=== PATIENT | female | born 2005 | race Native Hawaiian/Other Pacific Islander ===

== ENCOUNTER 2023-03-29 17:51 | Emergency (ER) | payer OTHER ==
[~2023-03-29] VITALS: Ht 162.6 cm; Wt 54.0 kg
[2023-03-29 17:55] VITALS: BP 106/54; TEMP 98.4
== END 2023-03-29 19:56 | disposition home or self-care (01) ==
LOC: ED 17:51
DX: J00 Acute nasopharyngitis [common cold] (principal); N39.0 Urinary tract infection, site not specified
CPT/HCPCS: 81000; 81025; 87077; 87086; 87088; 87186; 87502; 87635; 87651; 99283; U0003